=== PATIENT | female | born 1965 | race Caucasian/White ===

== ENCOUNTER 2016-12-03 20:20 | Emergency (ER) | payer OTHER ==
--- NOTE | ~2016-12-03 | ER ---
PATIENT'S NAME: JESUS WHITTAKER [facility] AGE: 50 Y [address] ROOM: [place] [address] LOCATION: [facility] ADMIT DATE: 12/03/2016 ER/Outpatient Report DISCHARGE DATE: 12/03/2016 FAMILY PHYSICIAN: Riddhi Goyal MD ATTENDING PHYSICIAN: Prince Murguia Time of Evaluation: 5 hours. HISTORY OF PRESENT ILLNESS: The patient is a 50-year-old female, who was at work, and she was moving a wheelchair, which the back wheel ran over her right foot. She presents with some swelling, tenderness involving the lateral right foot. She has pain with weightbearing. ALLERGIES: PENICILLIN. HOME MEDICATIONS: None. The patient has no chronic diseases. SURGERIES: Include a previous x2, appendectomy. SOCIAL HISTORY: Nonsmoker. Alcohol socially. REVIEW OF SYSTEMS: GENERAL: General health considered good. Otherwise all review of systems are negative except for the musculoskeletal. PHYSICAL EXAMINATION: VITAL SIGNS: Reviewed. GENERAL: The patient is alert and cooperative. EXTREMITIES: Exam of the right foot showed some swelling of soft tissue lateral right foot, and no break in the skin was noted. LABORATORY DATA AND X-RAYS: X-rays of her right foot showed no bony abnormality. ASSESSMENT: Contused lateral right foot. PLAN: [place]wyn wrap. Ice 10 to 15 minutes every couple of hours. Ibuprofen 600 mg every PATIENT'S NAME: JESUS WHITTAKER [facility] AGE: 50 Y [address] ROOM: [place] [address] LOCATION: [facility] ADMIT DATE: 12/03/2016 ER/Outpatient Report DISCHARGE DATE: 12/03/2016 FAMILY PHYSICIAN: Riddhi Goyal MD ATTENDING PHYSICIAN: Prince Murguia 6 hours. Follow up as needed. SVETLANA JUÁREZ FOR PRINCE MURGUIA MD SWJ/modl /[id number] d: 12/04/16 0125 t: 05/24/17 0952, OUTPATIENT REPORT
== END 2016-12-03 21:13 | disposition disaster alternative care site (69) ==
LOC: GMED 20:20
DX: S90.31XA Contusion of right foot, initial encounter (principal); Z88.1 Allergy status to other antibiotic agents; Z90.49 Acquired absence of other specified parts of digestive tract; W20.8XXA Other cause of strike by thrown, projected or falling object, initial encounter